=== PATIENT | female | born 1975 | race American Indian/Alaskan Native ===

== ENCOUNTER 2021-05-22 10:45 | Emergency (ER) | payer MEDICAID ==
[2021-05-22 11:43] VITALS: BP 163/90
--- NOTE | 2021-05-22 14:36 | Emergency Department Report ---
Chief Complaint: Back Pain/Injury Stated Complaint: BACK PAINS - HPI History of Present Illness: 46-year-old -[place] female presents to the emergency room for this anxiety back pain. Patient states is been going on for months. She has seen her primary care provider Aster and was given a referral for x-rays but has not completed them. Patient reports that she was on blood pressure medicine but has not taken it recently as she was confused and maybe it was for anxiety versus blood pressure. She denies any chest pain no shortness of breath. She does admit to increased stressors at home. - Exam Vital Signs: Vital Signs 05/22/21 11:41 Temperature 99.0 F Pulse Rate 89 Respiratory 18 Rate Blood Pressure 163/90 [Left] O2 Sat by Pulse 100 Oximetry Physical Exam: General: Awake, appropriately interactive, no acute distress. Neck: Supple. Full range of motion intact. Cardiovascular: Normal peripheral perfusion. Pulmonary: No respiratory distress. Patient is speaking normally without use of accessory muscles. Skin: No apparent rashes or lesions. Neurological: No facial asymmetry. Speech is clear. Follows commands. Patient is alert and oriented. Musculoskeletal: Full range of motion, no crepitus. No tenderness to palpate nonerythematous no edema test appreciated. Able to bear weight and ambulate without difficulty. Distal neurovascular and motor/sensory function is intact. Psych: Cooperative. Appropriate mood and affect. MSE screening note: Focused history and physical exam performed. Due to findings the following was ordered: 46-year-old -[place] female presents to the emergency room for this anxiety back pain. Patient states is been going on for months. She has seen her primary care provider Sam and was given a referral for x-rays but has not completed them. Patient reports that she was on blood pressure medicine but has not taken it recently as she was confused and maybe it was for anxiety versus blood pressure. She denies any chest pain no shortness of breath. She does admit to increased stressors at home. ED Disposition for MSE Clinical Impression: Chronic back pain greater than 3 months duration Disposition: DC-01 TO HOME OR SELFCARE Is pt being admited?: No Does the pt Need Aspirin: No Condition: Stable Instructions: Back Injury Prevention, [id number], Chronic Back Pain, Xiby-to-[id number] Additional Instructions: Please take ibuprofen Tylenol or Aleve for pain. Please increase your fluid intake. Please rest, increase your exercise stretches is a very important. Referrals: DEISY NOWAK MD [Staff Physician] - 3-5 Days
== END 2021-05-22 15:02 | disposition home or self-care (01) ==
LOC: ED 10:45
DX: M54.9 Dorsalgia, unspecified (principal); G89.29 Other chronic pain
CPT/HCPCS: 99281